=== PATIENT | female | born 1935 | race Caucasian/White ===

== ENCOUNTER → 2016-06-06 | Outpatient (CLI) | payer MEDICARE, OTHER | END | disposition disaster alternative care site (69) | LOC: GAMB 16:30 | DX: R53.1 Weakness (principal); E11.9 Type 2 diabetes mellitus without complications; Z79.899 Other long term (current) drug therapy | CPT/HCPCS: A0425; A0427 ==

== ENCOUNTER → 2016-06-06 | Emergency (ER) | payer MEDICARE, OTHER | END | disposition disaster alternative care site (69) | LOC: GAMB 09:51 | DX: M79.662 Pain in left lower leg (principal); E11.9 Type 2 diabetes mellitus without complications; Z79.899 Other long term (current) drug therapy ==

== ENCOUNTER → 2016-11-22 | Emergency (ER) | payer MEDICARE, OTHER | END | disposition disaster alternative care site (69) | LOC: GAMB 19:15 | DX: R53.1 Weakness (principal); E11.9 Type 2 diabetes mellitus without complications; W01.0XXA Fall on same level from slipping, tripping and stumbling without subsequent striking against object, initial encounter; Y93.9 Activity, unspecified; Y92.000 Kitchen of unspecified non-institutional (private) residence as the place of occurrence of the external cause; Y99.8 Other external cause status ==